=== PATIENT | male | born 1975 | race Caucasian/White ===

== ENCOUNTER 2024-02-17 02:18 | Emergency (ER) | payer OTHER ==
[2024-02-17 02:25] VITALS: BP 125/92; PULSE 71; RESP 16; TEMP 98.1; BMI 27.3
[2024-02-17] MEDS ORDERED: KETOROLAC TROMETHAMINE 60 MG/2 ML VIAL ONE (02:30)
[2024-02-17] MEDS ORDERED: AZITHROMYCIN 500 MG TABLET ONE (02:30)
[2024-02-17] MEDS: KETOROLAC TROMETHAMINE 60 MG/2 ML VIAL IM ONE (02:33)
[2024-02-17] MEDS: AZITHROMYCIN 250 MG TABLET PO STA (02:33)
== END 2024-02-17 02:36 | disposition home or self-care (01) ==
LOC: FER 02:18
PROC: 3E0233Z Introduction of Anti-inflammatory into Muscle, Percutaneous Approach (ICD-10-PCS; principal; 2024-02-17)
DX: H92.01 Otalgia, right ear (principal); H66.91 Otitis media, unspecified, right ear
CPT/HCPCS: 99284-25